=== PATIENT | male | born 1960 | race Caucasian/White ===

== ENCOUNTER → 2024-04-14 | Outpatient (CLI) | payer OTHER ==
--- NOTE | 2024-04-14 17:18 | US ---
EXAMINATION TYPE: US bladder DATE OF EXAM: 04/14/2024 COMPARISON: NONE CLINICAL INDICATION: Male, 63 years old with history of N40.1 BENIGN PROSTATIC HYPERPLASIA WITH LOWE R URINARY TRACT; BPH, trouble urinating x months TECHNIQUE: Multiple sonographic images of the bladder are obtained. FINDINGS: EXAM MEASUREMENTS: Post Void Residual Volume: 570 mL RESEARCH BIOLOGIST NOTES: bladder is sonolucent. Posterior wall appears irregular. There is a nodular protub erance extending into the bladder, likely median lobe hypertrophy. Color Doppler performed to assess ureteral jets. Bilateral Jets seen: Yes Normal Post Void Residual (less than 50ml): 570.3 IMPRESSION: 1. Slight irregularity along the posterior bladder wall could reflect trabeculations related to chron ic bladder outlet obstruction or some mild debris. 2. Soft tissue nodule protruding into the base of the bladder likely median lobe hypertrophy of the p rostate gland. Correlate with urine cytology and PSA values. 3. Urinary retention with postvoid bladder volume of 570 mL.
== END | disposition home or self-care (01) ==
LOC: RADUSWWP 15:59
PROVIDERS: ATTEND Family Medicine
DX: N40.1 Benign prostatic hyperplasia with lower urinary tract symptoms
CPT/HCPCS: 76857